=== PATIENT | female | born 1950 | race Caucasian/White ===

== ENCOUNTER 2016-11-10 10:28 | Inpatient (IN) | payer MEDICARE, OTHER ==
[~2016-11-10] VITALS: Ht 165.1 cm; Wt 113.1 kg
[~2016-11-10 10:28] MED LIST: HCTZ 25MG25 MG PO; PRILOSEC 20MG20 MG PO; TESSALON PERLE100 MG PO
[2017-01-02] VITALS (9 sets, daily range): BP systolic 97–174; BP diastolic 44–85; PULSE 49–79; TEMP 98.2–98.6
[2017-01-02 09:48] LABS: PH 7 (5-8); SQUAMOUS EPITHELIAL 0-2 /hpf; URINE APPEARANCE Clear; URINE BACTERIA None Seen /hpf; URINE BILIRUBIN Negative (NEGATIVE); URINE BLOOD Negative (NEGATIVE); URINE COLOR Yellow; URINE GLUCOSE Negative (NEGATIVE); URINE KETONE Negative (NEGATIVE); URINE RBC 0-2 /hpf; URINE UROBILINOGEN Negative (NEGATIVE); URINE WBC 0-2 /hpf
[2017-01-02] MEDS ORDERED: CENTRUM1 TA1 (10:39)
[2017-01-02] MEDS ORDERED: CLARITIN 1010 MG/TAB PO (10:40)
[2017-01-02] MEDS ORDERED: PRINIVIL10 MG PO (10:41)
[2017-01-02] MEDS ORDERED: DULERA1 ARO IH (10:41)
[2017-01-02] MEDS ORDERED: SINGULAIR 110 MG/TAB PO (10:42)
[2017-01-02] MEDS ORDERED: GLUCOPHAGE500 MG/TAB PO (10:42)
[2017-01-02] MEDS ORDERED: VITAMIN D 1001000 IU PO (10:43)
[2017-01-02] MEDS ORDERED: AMBIEN 5MG TABLE5 MG PO (10:43)
[2017-01-02] MEDS ORDERED: VENTOLIN0.09 MG IH (10:43)
[2017-01-03 00:56] VITALS: BP 139/51; PULSE 80; TEMP 99.1
[2017-01-03 03:56] VITALS: BP 124/53; PULSE 78; TEMP 98
[2017-01-03] MEDS ORDERED: ASPI325T6 PO (06:17)
[2017-01-03] MEDS ORDERED: CELEBREX 200MG200 MG PO (06:17)
[2017-01-03] MEDS ORDERED: NORCO 325 MG-7.1 TAB PO (06:17)
[2017-01-03] MEDS ORDERED: ULTRAM 50MG TAB50 MG PO (06:18)
[2017-01-03 07:06] VITALS: BP 114/44; PULSE 78; TEMP 98.1
[2017-01-03 07:54] LABS: HEMATOCRIT 32.7 % (37.0-47.0); HEMOGLOBIN 10.6 g/dl (12.5-16.0)
[2017-01-03 11:45] VITALS: BP 137/65; PULSE 72; TEMP 98.1
[2017-01-03 15:22] VITALS: BP 154/60; PULSE 74; TEMP 98.7
[2017-01-03 20:03] VITALS: BP 141/53; PULSE 73; TEMP 98.3
[2017-01-04 00:38] VITALS: BP 144/65; PULSE 83; TEMP 98.2
[2017-01-04 05:04] VITALS: BP 98/43; PULSE 54; TEMP 98
[2017-01-04 06:48] LABS: HEMATOCRIT 30.9 % (37.0-47.0); HEMOGLOBIN 10.1 g/dl (12.5-16.0)
[2017-01-04 07:19] VITALS: BP 144/48; PULSE 76; TEMP 99
[2017-01-04 20:07] VITALS: BP 134/67; PULSE 84; TEMP 97.6
[2017-01-05 00:16] VITALS: BP 139/69; PULSE 89; TEMP 98.3
[2017-01-05 03:34] VITALS: BP 112/53; PULSE 68; TEMP 98.8
[2017-01-05 07:48] VITALS: BP 115/51; PULSE 83; TEMP 98.3
[2017-01-05 12:09] VITALS: BP 111/54; PULSE 72; TEMP 98.1
== END 2017-01-05 14:15 | disposition home or self-care (01) | DRG 470 ==
LOC: JCC 01-02 08:38
PROVIDERS: Orthopaedic Surgery; Physician Assistant
PROC: 0SRD0J9 Replacement of Left Knee Joint with Synthetic Substitute, Cemented, Open Approach (ICD-10-PCS; principal; 2017-01-02 14:30)
DX: M17.12 Unilateral primary osteoarthritis, left knee (principal); Z68.41 Body mass index [BMI] 40.0-44.9, adult; I10 Essential (primary) hypertension; E11.9 Type 2 diabetes mellitus without complications; J45.909 Unspecified asthma, uncomplicated; E66.01 Morbid (severe) obesity due to excess calories
CPT/HCPCS: A4315; A9284; C1713; C1776; J0690; J1885; J2250; J2405; J2704; J3010; J7030

== ENCOUNTER → 2017-02-09 | Outpatient (CLI) | payer MEDICARE, OTHER ==
[~2017-02-09] MED LIST changes: +AMBIEN 5MG TABLE5 MG PO; +ASPI325T6 PO; +CELEBREX 200MG200 MG PO; +CENTRUM1 TA1; +CLARITIN 1010 MG/TAB PO; +DULERA1 ARO IH; +GLUCOPHAGE500 MG/TAB PO; +NORCO 325 MG-7.1 TAB PO; +PRINIVIL10 MG PO; +SINGULAIR 110 MG/TAB PO; +ULTRAM 50MG TAB50 MG PO; +VENTOLIN0.09 MG IH; +VITAMIN D 1001000 IU PO
== END ==
LOC: MC.RAD 10:20
DX: Z12.31 Encounter for screening mammogram for malignant neoplasm of breast (principal)

== ENCOUNTER → 2018-03-26 | Outpatient (CLI) | payer MEDICARE, OTHER | LOC: MC.RAD 02-23 13:20 | DX: Z12.31 Encounter for screening mammogram for malignant neoplasm of breast (principal) ==

== ENCOUNTER → 2019-04-08 | Outpatient (CLI) | payer MEDICARE, OTHER | LOC: MC.RAD 10:44 | DX: Z12.31 Encounter for screening mammogram for malignant neoplasm of breast (principal) ==

== ENCOUNTER → 2020-05-25 | Outpatient (CLI) | payer MEDICARE, OTHER | LOC: MC.RAD 10:52 | DX: Z12.31 Encounter for screening mammogram for malignant neoplasm of breast (principal) ==

== ENCOUNTER → 2021-05-26 | Outpatient (CLI) | payer MEDICARE, OTHER | LOC: MC.RAD 10:58 | DX: Z12.31 Encounter for screening mammogram for malignant neoplasm of breast (principal) ==

== ENCOUNTER → 2022-06-07 | Outpatient (CLI) | payer MEDICARE, OTHER | LOC: MC.RAD 13:43 | DX: Z12.31 Encounter for screening mammogram for malignant neoplasm of breast (principal) ==

== ENCOUNTER → 2024-07-26 | Outpatient (CLI) | payer MEDICARE, OTHER | LOC: MC.RAD 13:41 | DX: Z12.31 Encounter for screening mammogram for malignant neoplasm of breast (principal) ==